=== PATIENT | female | born 1975 | race Caucasian/White ===

== ENCOUNTER 2024-08-30 12:58 | Emergency (ER) | payer OTHER ==
[2024-08-30 13:23] VITALS: PULSE 87; RESP 18; TEMP 97.8
[2024-08-30 14:03] VITALS: O2SAT 96
--- NOTE | 2024-08-30 14:12 | XRAY ---
Indication: Pain following twisting injury/fall. Comparison: None 3 view right ankle demonstrates osteopenia, tiny well-circumscribed lateral malleolus tip heterotopic ossification, tiny heel spurs, and diffuse ankle soft tissue swelling. Foot reported separately.
--- NOTE | 2024-08-30 14:14 | XRAY ---
Indication: Pain following twisting injury/fall. Comparison: None 3 nonweightbearing views right foot demonstrates nondisplaced transverse fracture base 5th metatarsal. Incidental tiny heel spurs. No other bony, articular, or soft tissue abnormalities.
--- NOTE | 2024-08-30 14:16 | ERPHSYRPT ---
- History of Present Illness Time Seen by Provider: 08/30/24 13:40 Source: patient Exam Limitations: no limitations Patient Subjective Stated Complaint: Pt. states, "This morning around 7 am I had been sitting on the floor and my legs had fallen asleep, I stood up and fell onto my rt. ankle and foot, I'm not sure if I rolled the ankle or what. Now it hurts and I can't put any weight on it." Triage Nursing Assessment: Pt. arri Physician History: Patient is a 49-year-old female presents to our ED for evaluation of pain to her right foot and ankle. Patient states that she was sitting on the floor earlier this morning around 7 AM. This caused patient's leg to fall asleep. Patient got up and inverted her ankle and foot. Patient states that pain has got progressively worse throughout the day. Pain is significant when she weightbears. No other injury reported. No falls no knee hip back pain. No BHT or LOC. Patient otherwise feels well. She voices no other complaints or concerns at this time. Portions of this note were created with voice recognition technology. There may be grammatical, spelling, punctuation or sound alike errors Method of Injury: twisted Occurred: this morning Quality: constant Severity of Pain-Max: moderate Severity of Pain-Current: mild Lower Extremities Pain: foot: right, ankle: right Modifying Factors: Improves With: movement (Pain worse with weightbearing and active motion) Associated Symptoms: none Hx Tetanus, Diphtheria Vaccination/Date Given: No Hx Influenza Vaccination/Date Given: No Hx Pneumococcal Vaccination/Date Given: No Immunizations Up to Date: No Travel Risk - International Travel Have you traveled outside of the country in past 3 weeks: No - Emerging Infectious Disease Are you exhibiting symptoms associated with any current EIDs: No - Review of Systems Constitutional: No Symptoms, No Fever, No Chills Eyes: No Symptoms Ears, Nose, & Throat: No Symptoms Respiratory: No Symptoms, No Cough, No Dyspnea Cardiac: No Symptoms, No Chest Pain, No Edema, No Syncope Abdominal/Gastrointestinal: No Symptoms, No Abdominal Pain, No Nausea, No Vomiting, No Diarrhea Genitourinary Symptoms: No Symptoms, No Dysuria Musculoskeletal: No Symptoms, No Back Pain, No Neck Pain Skin: No Symptoms, No Rash Neurological: No Symptoms, No Dizziness, No Focal Weakness, No Sensory Changes Psychological: No Symptoms Endocrine: No Symptoms Hematologic/Lymphatic: No Symptoms Immunological/Allergic: No Symptoms All Other Systems: Reviewed and Negative - Past Medical History Pertinent Past Medical History: Yes Neurological History: No Pertinent History ENT History: No Pertinent History Cardiac History: High Cholesterol, Hypertension Respiratory History: No Pertinent History Endocrine Medical History: No Pertinent History Musculoskeletal History: Muscular Dystrophy GI Medical History: GERD History: No Pertinent History Psycho-Social History: Anxiety, Depression Female Reproductive Disorders: No Pertinent History - Past Surgical History Past Surgical History: Yes Neuro Surgical History: Other Other Surgical History: brain tumor removed last year, 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 ago Hx Now: No - Social History Smoking Status: Never smoker Exposure to second hand smoke: No Drug Use: none - Social Determinants of Health Will the patient participate in the screening: Declined to provide - Nursing Vital Signs Nursing Vital Signs: Initial Vital Signs Temperature 97.8 F 08/30/24 12:58 Pulse Rate 87 08/30/24 12:58 Respiratory Rate 18 08/30/24 12:58 Blood Pressure 110/60 08/30/24 12:58 O2 Sat by Pulse Oximetry 98 08/30/24 12:58 Pain Scale Pain Intensity 10 - Physical Exam General Appearance: no apparent distress, alert Eyes, Ears, Nose, Throat Exam: normal ENT inspection, moist mucous membranes Neck Exam: normal inspection, full range of motion Cardiovascular/Respiratory Exam: chest non-tender, regular rate/rhythm, no respiratory distress Gastrointestinal/Abdominal Exam: non-tender Back Exam: normal inspection, No vertebral tenderness Hips Exam: bilateral: non-tender, normal inspection, normal range of motion, no evidence of injury Legs Exam: bilateral leg: non-tender, normal inspection, normal range of motion, no evidence of injury Knees Exam: bilateral knee: non-tender, normal inspection, normal range of motion, no evidence of injury Ankle Exam: right ankle: soft tissue tenderness, swelling (Tenderness to palpation at the lateral ankle over the ATFL ligament and into the dorsal lateral aspect of the involved foot. The extremity is neurovascular tact distally compartments are soft cap refill less than 2 seconds. Overlying soft tissue intact.), left ankle: non-tender, normal inspection, normal range of motion, no evidence of injury Foot Exam: right foot: pain, soft tissue tenderness, other (Soft tissue tenderness over the proximal dorsal lateral foot. The involved extremity is neurovascular tact distally compartments are soft cap refill less than 2 seconds.), left foot: non-tender, normal inspection, normal range of motion, no evidence of injury Neuro/Tendon Exam: normal sensation, normal motor functions Mental Status Exam: alert, oriented x 3, cooperative Skin Exam: normal color, warm, dry SpO2 Interpretation: normal SpO2: 96 O2 Delivery: Room Air - Course Nursing assessment & vital signs reviewed: Yes - Radiology Exams Foot X-ray Interpretation: Teleradiologist Report (Nondisplaced transverse fracture base of the fifth metatarsal., Heel spur) Ordered Tests: Active Orders 24 hr Category Date Time Status ANKLE (3 VIEWS) Stat Exams 08/30/24 13:45 Completed FOOT (MINIMUM 3 VIEWS) Stat Exams 08/30/24 13:45 Completed - Progress Progress: improved Progress Note: 49-year-old female presents to our ED with pain to her right foot and ankle. Patient inverted her ankle at home while standing up from the floor. Physical exam reveals some swelling of her right foot right ankle. Tenderness at the ATFL and the dorsal lateral aspect of the right foot. The involved extremity is neurovascular tact distally compartments are soft cap refill less than 2 seconds. Overlying soft tissue intact. X-ray reveals a nondisplaced transverse fracture of the base of the fifth metatarsal. There is a heel spur as well. Patient given IM Toradol for pain control. Patient also given an orthopedic shoe of bilateral axillary crutches. Patient asked to remain nonweightbearing. Patient received a referral to the orthopedic clinic. Patient will follow-up tomorrow. Patient voices no other complaints or concerns at this time. Portions of this note were created with voice recognition technology. There may be grammatical, spelling, punctuation or sound alike errors Complexity of problem addressed is moderate acute complicated. No critical care time. Complex of data reviewed and analyzed as moderate. Test ordered test reviewed results analyzed and correlated clinically with history and physical exam. Risk of complication and or risk of morbidity/mortality of patient management is low. Vital stable. Time spent to discharge patient is approximately 15 minutes. Plan of care established for shared decision making. No social determinants of health present to impede follow-up. Portions of this note were created with voice recognition technology. There may be grammatical, spelling, punctuation or sound alike errors 08/30/24 14:29 Counseled pt/family regarding: diagnosis, need for follow-up, rad results - Departure Departure Disposition: Home Clinical Impression: Metatarsal fracture, Ankle sprain Condition: Stable Critical Care Time: No Referrals: DOCTOR,NO FAMILY [Primary Care Provider, UNKNOWN] - Follow up/PCP as directed MCKAYLA DIXON MD [ACTIVE STAFF, FAMILY PRACTICE] - Follow up/PCP as directed Outpatient Orders: Ortho Referral Time Frame: 1 Day, Facility: [facility], Location: [facility]THO CLINIC
[2024-08-30] MEDS: TORAdol 30 mg Injection IM ONE (14:32)
[2024-08-30] MEDS ORDERED: TORAdol 30 mg Injection ONE (14:32)
[2024-08-30 15:08] VITALS: BP 116/69
== END 2024-08-30 15:00 | disposition home or self-care (01) ==
LOC: ED 12:58
DX: S92.354A Nondisplaced fracture of fifth metatarsal bone, right foot, initial encounter for closed fracture (principal); S93.401A Sprain of unspecified ligament of right ankle, initial encounter; X50.0XXA Overexertion from strenuous movement or load, initial encounter
CPT/HCPCS: 28470; 73610; 73630; 96372; 99214; 99283; J1885